=== PATIENT | male | born 1995 | race African-American/Black ===

== ENCOUNTER 2020-01-11 06:41 | Emergency (ER) | payer OTHER ==
[~2020-01-11] VITALS: Ht 177.8 cm; Wt 77.3 kg
--- NOTE | 2020-01-11 08:55 | REPVR ---
PROCEDURE INFORMATION: Exam: CT Maxillofacial Without Contrast Exam date and time: 01/11/2020 7:30 AM Age: 24 years old Clinical indication: Injury or trauma; Fall; Blunt trauma (contusions or hematomas); Orbit/periorbital and other: Left side of face; Additional info: Left facial trauma, periorbital pain TECHNIQUE: Imaging protocol: Computed tomography images of the face without contrast. Radiation optimization: All CT scans at this facility use at least one of these dose optimization techniques: automated exposure control; mA and/or kV adjustment per patient size (includes targeted exams where dose is matched to clinical indication); or iterative reconstruction. COMPARISON: No relevant prior studies available. FINDINGS: Orbital cavity: Orbits are normal. Globes are unremarkable. Bones/joints: There is a comminuted and depressed left zygoma fracture, with angulation. Paranasal sinuses: Normal. No air-fluid levels. Soft tissues: There is left periorbital/left facial soft tissue swelling. IMPRESSION: Comminuted and depressed left zygoma fracture. Electronically signed by: Jessica Suarez On 01/11/2020 08:55:13 AM
[2020-01-11 10:13] VITALS: BP 130/75
[2020-01-11] MEDS ORDERED: AUGM875T28 PO (10:23)
== END 2020-01-11 10:40 | disposition home or self-care (01) ==
LOC: M ED 06:41
DX: S02.40FA Zygomatic fracture, left side, initial encounter for closed fracture (principal); W51.XXXA Accidental striking against or bumped into by another person, initial encounter; Y92.480 Sidewalk as the place of occurrence of the external cause; Y93.01 Activity, walking, marching and hiking; Y99.1 Military activity